=== PATIENT | male | born 2005 | race Caucasian/White ===

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

== ENCOUNTER 2024-06-16 18:30 | Emergency (ER) | payer MEDICAID ==
[~2024-06-16] VITALS: Ht 177.8 cm; Wt 47.2 kg
[2024-06-16 18:31] VITALS: BP 132/76; PULSE 108; RESP 15; O2SAT 100
[2024-06-16] MEDS ORDERED: NO HOME MEDS (18:36)
[2024-06-16] MEDS: proparacaine 0.5% ophthalmic drops 15ml RIGHTEYE ONE (18:51)
[2024-06-16] MEDS ORDERED: POLOS RIGHTEYE (18:56)
[2024-06-16 18:58] VITALS: TEMP 97.8
== END 2024-06-16 19:04 | disposition home or self-care (01) ==
LOC: ER 18:30
DX: T15.11XA Foreign body in conjunctival sac, right eye, initial encounter (principal); W44.8XXA Other foreign body entering into or through a natural orifice, initial encounter; Y93.89 Activity, other specified; Y92.89 Other specified places as the place of occurrence of the external cause; Y99.8 Other external cause status
CPT/HCPCS: 65205; 99284